=== PATIENT | female | born 1970 | race Caucasian/White ===

== ENCOUNTER → 2017-03-01 | Day surgery (SDC) | payer MEDICAID ==
[~2017-03-01] VITALS: Ht 160 cm; Wt 122.5 kg
[~2017-03-01] MED LIST: ACET-2178 PO; ACYC200C PO; ALBU90AE IH; AMLO5TAB4 PO; ASCO-339 PO; ASPI-1159 PO; BENA20TA3 PO; BISA-81 PO; CLON1TAB PO; DICY10CA59 PO; FENO48 PO; FENTANYL CITRATE/PF 50MCG/ML 2ML VIAL ONE; FLUO20CA33 PO; HEPARIN SODIUM 1,000 UNIT/1ML VIAL IV ONE; IOHEXOL-300 100 ML BOTTLE ONE; LIDOCAINE HCL 1% 20ML VIAL (Pyxis) INJ ONE; MELO15TA13 PO; METF850T2 PO; MIDAZOLAM HCL 2 MG/2 ML VIAL ONE; MOM PO; NICARDIPINE 100MCG/ML 10ML VIAL (CATH LAB) IV ONE; NITR0.4T SL; NITROGLYCERIN 50MCG/ML 10ML VIAL (CATH LAB) IV ONE; SIME125C PO; SIMV20TA2 PO; SOLI10TA PO; TIOT18CA3 INH; TRAM50TA73 PO; ZIPR80CA2 PO
== END | disposition home or self-care (01) ==
LOC: CCL 07:11
PROVIDERS: ATTEND Specialist
DX: R07.9 Chest pain, unspecified (principal); E11.9 Type 2 diabetes mellitus without complications; E66.9 Obesity, unspecified; E78.5 Hyperlipidemia, unspecified; F17.200 Nicotine dependence, unspecified, uncomplicated; G47.33 Obstructive sleep apnea (adult) (pediatric); I11.9 Hypertensive heart disease without heart failure; I25.10 Atherosclerotic heart disease of native coronary artery without angina pectoris; I25.2 Old myocardial infarction; J44.9 Chronic obstructive pulmonary disease, unspecified; Z79.84 Long term (current) use of oral hypoglycemic drugs; Z79.82 Long term (current) use of aspirin; Z86.711 Personal history of pulmonary embolism
CPT/HCPCS: 82962; 93458; C1760; C1769; C1887; C1893; J1644; J3490; Q9967; J2250; J3010